=== PATIENT | male | born 1945 | race Caucasian/White ===

== ENCOUNTER 2017-01-22 14:10 | Emergency (ER) | payer MEDICARE, OTHER ==
[2017-01-22 13:03] LABS: BASOPHILS 0.4 %; BASOPHILS ABSOLUTE 0.04 10/3/uL (0.0-0.16); EOSINOPHILS 2.4 %; EOSINOPHILS ABSOLUTE 0.22 10/3/uL (0.0-0.53); ER CBC TAT 0 Hrs 07 Mins; HEMATOCRIT 30.8 % (40.0-51.0); HEMOGLOBIN 10.4 g/dL (13.6-17.8); IMMATURE GRANULOCYTES 1.7 %; IMMATURE GRANULOCYTES ABSOLUTE 0.15 10/3/uL (0.0-0.11); LYMPHOCYTES ABSOLUTE 1.64 10/3/uL (0.67-4.30); MANUAL DIFF NO %; MEAN CORPUS HGB CONC 33.8 g/dL (32.0-36.0); MEAN CORPUSCULAR VOLUME 91.7 fL (80-100); MEAN PLATELET VOLUME 10.2 fL (9.2-13.0); MONOCYTES 18.3 %; MONOCYTES ABSOLUTE 1.66 10/3/uL (0.21-1.20); NEUTROPHILS 59.2 %; NEUTROPHILS ABSOLUTE 5.38 10/3/uL (2.02-8.40); PLATELET COUNT 345 10/3/uL (150-400); RBC DISTRIBUTION WIDTH 18.9 % (12.0-16.0); RED CELL COUNT 3.36 10/6/uL (4.7-6.1); WHITE BLOOD CELLS 9.1 10/3/uL (4.5-10.5)
[2017-01-22 13:15] LABS: A/G RATIO 1.1 (0.7-1.9); ALBUMIN 3.9 G/DL (3.5-5.0); ALKALINE PHOSPHATASE 74 U/L (45-117); BUN (BLOOD UREA NITROGEN) 19 MG/DL (6-23); CALCIUM, SERUM 8.5 MG/DL (8.5-10.4); CHLORIDE, SERUM 92 MMOL/L (96-112); CO2 (CARBON DIOXIDE) 26 MMOL/L (24-34); CREATININE 0.78 MG/DL (0.70-1.30); GFR AFRICAN AMERICAN 105 ML/MIN (>=60); GFR NON AFRICAN AMERICAN 90 ML/MIN (>=60); GLOBULIN 3.6 G/DL (2.5-4.1); GLUCOSE, SERUM 99 MG/DL (60-99); SGPT(ALT) 81 U/L (5-65); SODIUM, SERUM 128 MMOL/L (135-148); TOTAL BILIRUBIN 0.6 MG/DL (0-1.2); TOTAL PROTEIN 7.5 G/DL (6.0-8.5)
[2017-01-22 13:16] LABS: POTASSIUM, SERUM 4.3 MMOL/L (3.5-5.3); SGOT(AST) 41 U/L (5-40)
[~2017-01-22 14:10] MED LIST: AFRIN15 NAS; AMOXIL500 MG PO; ASAB PO; ATV1 PO; B12250T PO; BIAXIN5 PO; CENTRUM TAB1 TAB PO; CIP5 PO; CLARIT10 PO; D100 PO; DRAMAMINE25 MG PO; ENDOCET1 TAB PO; FERRETTS325 MG PO; FLONASE NAS; GAS-X80 MG PO; GLAUCOMA EYE DROPS; IRON325 MG PO; LOP25 PO; LOP50 PO; MCZ125 PO; MCZ25 PO; MIRALAXPKT PO; MYLANTA ULTR1 TAB PO; NORCO1 TA1 PO; PEP20 PO; PEPCID40 MG OR; PRILO PO; PRILOSEC40 MG PO; PRIN10 PO; PRINZIDE1 TAB PO; PROAIR HFA INH; PROTONIX PO; REG PO; REST15 PO; SOLU-CORTE100 MG/2 M IM; SUCR PO; SYN.05 PO; SYN1 PO; TEARS NATURA OPH; TRANSSCOP TOP; TUMSROLL PO; TYLENOL 8 HR650 MG PO; V5 PO; VICODINTAB PO; VITAMIN B-121000 MC1 PO; VITAMIN B-122500 MCG SL; VITAMIN C100 MG PO; VITAMIN C500 M3 PO; VITC500 PO; Z-PAK PO; ZANTAC150 MG PO; ZESTRIL10 MG PO; ZOFRAN4 PO
[2017-01-22 16:04] LABS: WBC (NOT ORDERED) (RFLEX) 0 (0-5)
[2017-01-22 16:14] LABS: ASCORBIC ACID (UR NOT ORDER) NEG (NEG); BILIRUBIN, URINE NEGATIVE (NEG); ER URINALYSIS TAT 0 Hrs 10 Mins; KETONE, URINE NEGATIVE (NEG); LEUKOCYTE ESTERASE(NOT OR NEG (NEG); NITRITE (URINE) NEG (NEG)
== END 2017-01-22 19:25 | disposition home or self-care (01) ==
LOC: ER 14:10
PROVIDERS: Nurse Practitioner Family
DX: R10.12 Left upper quadrant pain (principal); E87.1 Hypo-osmolality and hyponatremia; D50.9 Iron deficiency anemia, unspecified; I10 Essential (primary) hypertension; K21.9 Gastro-esophageal reflux disease without esophagitis; F41.9 Anxiety disorder, unspecified; Z88.1 Allergy status to other antibiotic agents; Z88.2 Allergy status to sulfonamides; Z88.8 Allergy status to other drugs, medicaments and biological substances; Z79.899 Other long term (current) drug therapy
CPT/HCPCS: 74022; 80053; 81001; 83690; 85025; 93005; 99284; A9270-GY